=== PATIENT | female | born 1995 | race African-American/Black ===

== ENCOUNTER 2016-05-21 13:24 | Emergency (ER) | payer BC, OTHER ==
[~2016-05-21] VITALS: Ht 154.9 cm; Wt 71.0 kg
[2016-05-21 16:27] LABS: DIFFERENTIAL COMMENT 0; EOSINOPHILS % 3.5 % (0.0-5.0); HEMATOCRIT. 34.7 % (36.0-48.0); HEMOGLOBIN. 11.1 g/dL (12.0-16.0); LYMPHOCYTES % 19.3 % (20.0-50.0); MEAN CORPUSCULAR HGB CONC 32.1 g/dL (31.0-37.0); MEAN PLATELET VOLUME 8.3 fl (7.4-10.4); MONOCYTES % 8.6 % (2.0-8.0); NEUTROPHILS % 67.6 % (40.0-76.0); PLATELET 224 x1000/uL (130-400); RED BLOOD CELL COUNT 4.45 mill/uL (4.2-5.4); RED CELL DISTRIBUTION WIDTH 15.9 % (11.6-14.6); WHITE BLOOD COUNT 7.3 x1000/uL (4.5-11.0)
[2016-05-21 16:30] LABS: CLARITY URINE CLEAR (CLEAR); COLOR URINE YELLOW (YELLOW); GLUCOSE URINE NEGATIVE (NEGATIVE); KETONES URINE NEGATIVE (NEGATIVE); LEUKOCYTE ESTERASE URINE NEGATIVE (NEGATIVE); NITRITE URINE NEGATIVE (NEGATIVE); OCCULT BLOOD URINE NEGATIVE (NEGATIVE); PH URINE 5.5 (4.5-8.0); PROTEIN URINE NEGATIVE (NEGATIVE); SPECIFIC GRAVITY URINE 1.018 (1.005-1.030); UROBILINOGEN URINE 0.2 E.U./dL (0.2-1.0)
[2016-05-21 16:39] LABS: HCG SCREEN NEGATIVE
[2016-05-21 17:31] VITALS: BP 119/68
== END 2016-05-21 17:32 | disposition home or self-care (01) ==
LOC: ER 13:25
DX: N93.8 Other specified abnormal uterine and vaginal bleeding (principal); R11.0 Nausea; R10.9 Unspecified abdominal pain; F12.10 Cannabis abuse, uncomplicated
CPT/HCPCS: 36415; 81003; 84703; 85025; 99284

== ENCOUNTER 2016-08-08 17:33 | Emergency (ER) | payer BC, OTHER ==
[~2016-08-08] VITALS: Ht 165.1 cm; Wt 66.0 kg
[2016-08-08] MEDS ORDERED: IBUPROFEN 600MG TABLET PO ONE (18:45)
[2016-08-08 19:33] VITALS: BP 112/74
== END 2016-08-08 20:08 | disposition home or self-care (01) ==
LOC: ER 18:43
DX: S92.352A Displaced fracture of fifth metatarsal bone, left foot, initial encounter for closed fracture (principal); F12.10 Cannabis abuse, uncomplicated; W01.0XXA Fall on same level from slipping, tripping and stumbling without subsequent striking against object, initial encounter; Y93.89 Activity, other specified; Y92.89 Other specified places as the place of occurrence of the external cause; Y99.8 Other external cause status
CPT/HCPCS: 29515; 73630; 81025; 99284

== ENCOUNTER 2016-11-06 08:24 | Emergency (ER) | payer BC, OTHER ==
[~2016-11-06] VITALS: Ht 157.5 cm; Wt 60.0 kg
[2016-11-06 10:18] VITALS: BP 121/72
== END 2016-11-06 10:35 | disposition home or self-care (01) ==
LOC: ER 08:47
DX: Z20.7 Contact with and (suspected) exposure to pediculosis, acariasis and other infestations (principal)
CPT/HCPCS: 99281

== ENCOUNTER 2017-02-08 19:44 | Emergency (ER) | payer BC, OTHER ==
[~2017-02-08] VITALS: Ht 154.9 cm; Wt 57.0 kg
[2017-02-08 20:03] VITALS: BP 129/70
[2017-02-08] MEDS ORDERED: DIPHENHYDRAMINE 25MG CAPSULE PO ONE (22:30)
== END 2017-02-08 23:01 | disposition home or self-care (01) ==
LOC: ER 20:11
DX: J06.9 Acute upper respiratory infection, unspecified (principal); L50.9 Urticaria, unspecified; F17.200 Nicotine dependence, unspecified, uncomplicated; F12.10 Cannabis abuse, uncomplicated
CPT/HCPCS: 99283; Q0163

== ENCOUNTER 2017-07-06 12:32 | Emergency (ER) | payer BC, OTHER ==
[~2017-07-06] VITALS: Ht 154.9 cm; Wt 59.0 kg
[2017-07-06] MEDS ORDERED: DIPHENHYDRAMINE 50MG CAPSULE PO ONE (12:45)
[2017-07-06] MEDS ORDERED: FAMOTIDINE 20MG TABLET PO ONE (12:45)
[2017-07-06] MEDS ORDERED: METHYLPREDNISOLONE SOD SUCC 125 MG/2 ML VIAL IV ONE (12:45)
[2017-07-06 16:30] VITALS: BP 116/70
== END 2017-07-06 16:31 | disposition home or self-care (01) ==
LOC: ER 13:25
DX: T78.40XA Allergy, unspecified, initial encounter (principal); L50.0 Allergic urticaria
CPT/HCPCS: 96374; 99284; J2930; Z7610; Q0163

== ENCOUNTER 2018-07-24 14:54 | Emergency (ER) | payer BC, OTHER ==
[~2018-07-24] VITALS: Ht 154.9 cm; Wt 57.8 kg
[2018-07-24 16:40] VITALS: BP 105/70
== END 2018-07-24 17:11 | disposition home or self-care (01) ==
LOC: ER 14:54
DX: T14.8XXA Other injury of unspecified body region, initial encounter (principal); F17.200 Nicotine dependence, unspecified, uncomplicated; F12.10 Cannabis abuse, uncomplicated; W57.XXXA Bitten or stung by nonvenomous insect and other nonvenomous arthropods, initial encounter; Y93.89 Activity, other specified; Y92.89 Other specified places as the place of occurrence of the external cause; Y99.8 Other external cause status
CPT/HCPCS: 99282; 99283

== ENCOUNTER 2018-10-24 11:35 | Emergency (ER) | payer BC, OTHER ==
[~2018-10-24] VITALS: Ht 154.9 cm; Wt 59.0 kg
[2018-10-24 12:23] VITALS: BP 95/75
== END 2018-10-24 13:21 | disposition left against medical advice (07) ==
LOC: ER 11:37
DX: Z53.21 Procedure and treatment not carried out due to patient leaving prior to being seen by health care provider (principal)

== ENCOUNTER 2019-03-04 14:18 | Emergency (ER) | payer OTHER ==
[~2019-03-04] VITALS: Ht 165.1 cm; Wt 60.0 kg
[2019-03-04 14:28] VITALS: BP 134/70
[2019-03-04] MEDS ORDERED: FAMOTIDINE 20MG TABLET PO ONE (15:45)
[2019-03-04] MEDS ORDERED: METHYLPREDNISOLONE SOD SUCC 40 MG/ML VIAL IM ONE (15:45)
[2019-03-04] MEDS ORDERED: DIPHENHYDRAMINE 25MG CAPSULE PO ONE (15:45)
[2019-03-04] MEDS ORDERED: FLUORESCEIN SODIUM 1MG/STRIP LEFTEYE ONE (17:15)
[2019-03-04] MEDS ORDERED: TETRACAINE 0.5% OPHTH DROPS 4ML LEFTEYE ONE (17:15)
== END 2019-03-04 17:29 | disposition home or self-care (01) ==
LOC: ER 14:18
DX: H57.89 Other specified disorders of eye and adnexa (principal); H10.9 Unspecified conjunctivitis; T78.40XA Allergy, unspecified, initial encounter; X58.XXXA Exposure to other specified factors, initial encounter
CPT/HCPCS: 96372; 99283; J2920; Q0163

== ENCOUNTER 2020-04-04 12:06 | Emergency (ER) | payer OTHER ==
[~2020-04-04] VITALS: Ht 167.6 cm; Wt 60.0 kg
[2020-04-04 12:23] VITALS: BP 108/64
[2020-04-04] MEDS ORDERED: IBUPROFEN 600MG TABLET PO STA (12:52)
== END 2020-04-04 13:11 | disposition left against medical advice (07) ==
LOC: ER 12:06
DX: S02.609S Fracture of mandible, unspecified, sequela (principal); R51.9 Headache, unspecified; F12.10 Cannabis abuse, uncomplicated; Y08.89XS Assault by other specified means, sequela
CPT/HCPCS: 99281

== ENCOUNTER 2020-10-07 11:30 | Emergency (ER) | payer BC, OTHER ==
[~2020-10-07] VITALS: Ht 154.9 cm; Wt 50.0 kg
[2020-10-07 12:18] VITALS: BP 110/78
== END 2020-10-07 14:03 | disposition left against medical advice (07) ==
LOC: ER 13:46
DX: U07.1 COVID-19 (principal); J06.9 Acute upper respiratory infection, unspecified; J45.909 Unspecified asthma, uncomplicated; F12.10 Cannabis abuse, uncomplicated
CPT/HCPCS: 99283; C9803; U0003; U0005